=== PATIENT | female | born 1970 | race Caucasian/White ===

== ENCOUNTER 2022-01-19 05:52 | Day surgery (SDC) | payer OTHER ==
[2022-01-17 17:11] LABS: BASOPHILS ABSOLUTE AUTO 0.04 K/mm3 (0.00-0.23); BASOPHILS PERCENT AUTO 1 % (0-2); EOSINOPHILS ABSOLUTE AUTO 0.04 K/mm3 (0.00-0.68); EOSINOPHILS PERCENT AUTO 1 % (0-6); Hematocrit 41.3 % (33.0-51.0); Hemoglobin 13.6 g/dL (11.5-16.0); IMMATURE GRAN ABSOLUTE AUTO 0.01 K/mm3 (0.00-0.10); IMMATURE GRAN PERCENT AUTO 0 % (0-1); LYMPHOCYTES ABSOLUTE AUTO 1.86 K/mm3 (0.84-5.20); LYMPHOCYTES PERCENT AUTO 26 % (21-46); MONOCYTES ABSOLUTE AUTO 0.36 K/mm3 (0.16-1.47); MONOCYTES PERCENT AUTO 5 % (4-13); Mean Corpuscular HGB 29.5 pg (26.0-34.0); Mean Corpuscular HGB Conc 32.9 g/dL (31.5-36.5); Mean Corpuscular Volume 90 fL (80-100); Mean Platelet Volume 10.8 fL (9.1-12.4); NEUTROPHILS ABSOLUTE AUTO 4.88 K/mm3 (1.96-9.15); NEUTROPHILS PERCENT AUTO 68 % (41-73); Platelet Count 277 K/mm3 (150-400); RDW Coefficient Variation 13.5 % (11.7-14.2); RDW Standard Deviation 44.3 fL (35.1-46.3); Red Blood Cell Count 4.61 M/mm3 (3.80-5.20); White Blood Cell Count 7.19 K/mm3 (4.00-11.30)
[~2022-01-19] VITALS: Ht 167.6 cm; Wt 71.5 kg
[~2022-01-19 05:52] MED LIST: [UNRECOGNIZED DRUG - OTHER]; [UNRECOGNIZED DRUG - REMARK]
--- NOTE | 2022-01-19 13:03 | NUR ---
report to alanna murphy
--- NOTE | 2022-01-19 13:19 | NUR ---
ASSUME PT CARE AT 1300
--- NOTE | 2022-01-19 15:07 | NUR ---
IV TO S.L. PT EMIR POS WELL. MICHAEL PROVIDED. BOWEL TONES ACTIVE X4 QUAD. PT DENIES PASSING FLAT.
[2022-01-19] MEDS ORDERED: IBUP800 PO (15:09)
[2022-01-19] MEDS ORDERED: DOCU100 PO (15:09)
[2022-01-19] MEDS ORDERED: Percocet 5-3251 EACH PO (15:09)
[2022-01-19] MEDS ORDERED: PROM25 PO (15:10)
--- NOTE | 2022-01-19 18:10 | NUR ---
DISCHARGE INSTRUCTIONS REVIEWED AND SIGNED. PT FEELS WELL AND DESIRES TO GO HOME. UP TO W/C. DISCHARGE TO HOME WITH .
== END 2022-01-19 18:15 | disposition home or self-care (01) ==
LOC: ORSCMMR 05:52 → ORD 07:30 → BC 11:48 → ORSCMMR 18:15
PROVIDERS: Obstetrics & Gynecology
PROC: 0UT74ZZ Resection of Bilateral Fallopian Tubes, Percutaneous Endoscopic Approach (ICD-10-PCS; principal; 2022-01-19 07:30)
PROC: 0UT94ZZ Resection of Uterus, Percutaneous Endoscopic Approach (ICD-10-PCS; principal; 2022-01-19 07:30)
DX: N92.0 Excessive and frequent menstruation with regular cycle (principal); D25.9 Leiomyoma of uterus, unspecified; N94.6 Dysmenorrhea, unspecified; D50.0 Iron deficiency anemia secondary to blood loss (chronic); N84.0 Polyp of corpus uteri
CPT/HCPCS: 58573; S2900; 36415; 84702; 85025; 86850; 86900; 86901; 88307; A9270; J0690; J1100; J1885; J2250; J2270; J2370; J2405; J2704; J3010; J7120